=== PATIENT | male | born 2000 | race Caucasian/White ===

== ENCOUNTER 2023-08-20 16:06 | Emergency (ER) | payer BC ==
[2023-08-20 17:05] VITALS: BP 132/74; PULSE 79; RESP 18; TEMP 97.9; O2SAT 98
[2023-08-20 17:11] LABS: Group A Strep NOT DETECTED (NEGATIVE)
[2023-08-20 17:24] LABS: INFLUENZA A NEGATIVE (NEGATIVE); INFLUENZA B NEGATIVE (NEGATIVE); RESPIRATORY SYNCTIAL VIRUS NEGATIVE (NEGATIVE)
[2023-08-20 17:41] LABS: SARS-CoV-2 Xpert Express POSITIVE (NEGATIVE)
--- NOTE | 2023-08-20 17:51 | ERPHSYRPT ---
- History of Present Illness Time Seen by Provider: 08/20/23 17:46 Source: patient Exam Limitations: no limitations Patient Subjective Stated Complaint: Cough Triage Nursing Assessment: Patient ambulated back to ED and transferred self to bed. Patient A+O x3. Patient complains of cough, fever, and body aches 5/10 for 2 days. Patient took home test yesterday and was POSITIVE. Patient's work needs a work note to confirm positive test. Lungs clear a/p juma. Patient complains of intermittent cough with thick green sputum. Physician History: This is a 23-year-old white male patient of nurse practitioner Jerome who presen ts with 2-day history of cough, fever and bodyaches. Patient took a home COVID test yesterday and it was positive. Patient's employer wants a confirmatory, hospital test. Patient denies chest pain. He has had no nausea vomiting or diarrhea symptoms. He has no abdominal pain. Timing/Duration: day(s) (2) Cough Quality/Degree: mild, dry cough Possible Cause: no prior episodes Associated Symptoms: fever, cough, dizziness, No chest pain/soreness, No shortness of breath, No sore throat Allergies/Adverse Reactions: No Known Drug Allergies Allergy (Unverified 02/23/15 14:26) Home Medications: Ascorbic Acid/Vitamin E/Biotin [Hair Skin Nails-Biotin Gummies] 1 each PO DAILY 02/23/15 [History] Loratadine [Claritin] 10 mg PO DAILY 02/23/15 [History] Multivit-Mins/Iron/Folic/Lycop [Centrum Ultra Men's Tablet] 1 each PO DAILY 02/23/15 [History] Hx Tetanus, Diphtheria Vaccination/Date Given: Yes Hx Influenza Vaccination/Date Given: No Hx Pneumococcal Vaccination/Date Given: No Immunizations Up to Date: Yes Travel Risk - International Travel Have you traveled outside of the country in past 3 weeks: No - Coronavirus Screening Are you exhibiting any of the following symptoms?: Yes Symptoms: Fever, Cough: New Onset, Headaches/Body Aches/Fatigue Close contact with a COVID-19 positive Pt in past 14-21 Days: No - Vaccine Status Have you recieved a Covid-19 vaccination: No - Review of Systems Constitutional: Fever Eyes: No Symptoms Ears, Nose, & Throat: Throat Pain Respiratory: Cough, No Dyspnea, No Wheezing Cardiac: No Symptoms Abdominal/Gastrointestinal: No Symptoms Genitourinary Symptoms: No Symptoms Musculoskeletal: Arthralgias, Myalgias Skin: No Symptoms Neurological: No Symptoms Psychological: No Symptoms Endocrine: No Symptoms Hematologic/Lymphatic: No Symptoms Immunological/Allergic: No Symptoms All Other Systems: Reviewed and Negative - Past Medical History Pertinent Past Medical History: No Neurological History: No Pertinent History ENT History: No Pertinent History Cardiac History: No Pertinent History Respiratory History: No Pertinent History Endocrine Medical History: No Pertinent History Musculoskeletal History: No Pertinent History GI Medical History: No Pertinent History History: No Pertinent History Psycho-Social History: No Pertinent History Male Reproductive Disorders: No Pertinent History - Past Surgical History Past Surgical History: Yes Neuro Surgical History: No Pertinent History Cardiac: No Pertinent History Respiratory: No Pertinent History Gastrointestinal: No Pertinent History Genitourinary: No Pertinent History Musculoskeletal: No Pertinent History Male Surgical History: No Pertinent History Other Surgical History: Toe-nail removal - Social History Smoking Status: Never smoker Exposure to second hand smoke: No Drug Use: none Patient Lives Alone: Yes - Nursing Vital Signs Nursing Vital Signs: Initial Vital Signs Temperature 97.9 F 08/20/23 16:45 Pulse Rate 79 08/20/23 16:45 Respiratory Rate 18 08/20/23 16:45 Blood Pressure 132/74 08/20/23 16:45 O2 Sat by Pulse Oximetry 98 08/20/23 16:45 Pain Scale Pain Intensity 5 - Physical Exam General Appearance: no apparent distress, alert Eye Exam: PERRL/EOMI, eyes nml inspection Ears, Nose, Throat Exam: normal ENT inspection, moist mucous membranes Neck Exam: normal inspection, non-tender, supple, full range of motion Respiratory Exam: normal breath sounds, lungs clear, airway intact, No chest tenderness, No respiratory distress Cardiovascular Exam: regular rate/rhythm, normal heart sounds, normal peripheral pulses Gastrointestinal/Abdomen Exam: soft, normal bowel sounds, No tenderness Rectal Exam: not done Back Exam: normal inspection, normal range of motion, No CVA tenderness, No vertebral tenderness Extremity Exam: normal inspection, normal range of motion, pelvis stable Neurologic Exam: alert, oriented x 3, cooperative, 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, normal mood/affect, nml cerebellar function, nml station & gait, sensation nml Skin Exam: normal color, warm, dry Lymphatic Exam: No adenopathy SpO2 Interpretation: normal SpO2: 98 O2 Delivery: Room Air - Course Nursing assessment & vital signs reviewed: Yes Lab/Rad Data: Laboratory Results 08/20/23 Range/Units 16:42 Influenza Type A Ag NEGATIVE (NEGATIVE) Influenza Type B Ag NEGATIVE (NEGATIVE) RSV (PCR) NEGATIVE (NEGATIVE) SARS-CoV-2 (PCR) POSITIVE A (NEGATIVE) Group A Strep Antibody NOT DETECTED (NEGATIVE) - Progress Progress: improved, re-examined Air Movement: good Progress Note: 08/20/23 17:48 This patient's medical issue is 1 of low complexity. The level of complexity in the workup performed is based on review of the patient's past medical history, review of patient's medication list, review of patient's drug allergy list, history present illness and physical findings on examination. The workup in this patient includes viral swabs as well as group A strep test. I interpreted the lab test results. Patient is positive for COVID-19 infection. Counseled pt/family regarding: lab results, diagnosis Medical Desision Making - Diagnostic Testing Diagnostic test were ordered, analyzed, and reviewed by me: Yes - Risk of complications The pt has a mod risk of morbidity or mortality based on: Need for prescription drug management - Departure Departure Disposition: Home Clinical Impression: COVID-19 virus infection Condition: Stable Critical Care Time: No Referrals: HAYDEE DE NP [Primary Care Provider] - Follow up/PCP as directed Additional Instructions: Drink plenty of clear liquids. Add ibuprofen for pain and fever control. Take your medication prescriptions as prescribed. You are positive for COVID-19 infection. Follow your employers policy for returning to work. Forms: Work/School Release Form Prescriptions: Benzonatate 200 mg PO TID PRN #10 cap PRN Reason: Cough Prednisone 10 mg [Deltasone 10 mg] 10 mg PO TID #12 tablet
== END 2023-08-20 18:42 | disposition home or self-care (01) ==
LOC: ED 16:06
DX: U07.1 COVID-19 (principal); R05.1 Acute cough; R50.9 Fever, unspecified; M79.10 Myalgia, unspecified site; Z79.52 Long term (current) use of systemic steroids; Z79.899 Other long term (current) drug therapy; Z28.310 Unvaccinated for COVID-19
CPT/HCPCS: 0241U; 87651; 99282